=== PATIENT | male | born 1990 | race American Indian/Alaskan Native ===

== ENCOUNTER 2019-01-09 15:59 | Emergency (ER) | payer SELFPAY ==
[2019-01-09 16:27] VITALS: BP 112/70
== END 2019-01-09 17:45 | disposition left against medical advice (07) ==
LOC: ED 15:59
DX: R10.9 Unspecified abdominal pain (principal); Z53.21 Procedure and treatment not carried out due to patient leaving prior to being seen by health care provider

== ENCOUNTER 2019-01-10 09:44 | Emergency (ER) | payer OTHER ==
--- NOTE | 2019-01-10 12:38 | Emergency Department Report ---
ED General Adult HPI - General Chief complaint: Rectal Pain Stated complaint: LOWER REAR PAIN Time Seen by Provider: 01/10/19 12:11 Source: patient Mode of arrival: Ambulatory Limitations: No Limitations - History of Present Illness Initial comments: Patient presents to the emergency department with a chief complaint of rectal pain with bowel movements. Patient states his symptoms started 5 days ago after having a difficult time with a bowel movement. Patient complains of being.. Constipated and states he does not drink a lot of fluids or eat vegetables. Patient denies anal sex -: Sudden Radiation: non-radiation Severity scale (0 -10): 5 Quality: aching Consistency: intermittent Improves with: none Worsens with: other (Bowel movements) Associated Symptoms: denies other symptoms - Related Data Previous Rx's Medication Instructions Recorded Last Taken Type Hydrocodone Bit/Acetaminophen 1 each PO Q6H PRN #20 tablet 07/20/13 Unknown Rx [Lortab 10-500 mg] Ibuprofen [Motrin] 800 mg PO TID PRN #30 tablet 07/20/13 Unknown Rx Hydrocort/Pramoxine [Proctofoam-Hc] 10 gm MS BID #1 can 01/10/19 Unknown Rx Hydrocortisone [Anusol-Hc] 30 gm RC TID #1 cream..g. 01/10/19 Unknown Rx Sennosides Tab [Senokot] 8.6 mg PO BID #20 tablet 01/10/19 Unknown Rx Allergies Allergy/AdvReac Type Severity Reaction Status Date / Time No Known Allergies Allergy Verified 01/09/19 16:01 ED Review of Systems ROS: Stated complaint: LOWER REAR PAIN Other details as noted in HPI Constitutional: denies: chills, fever Eyes: denies: eye pain, eye discharge, vision change ENT: denies: ear pain, throat pain Respiratory: denies: cough, shortness of breath, wheezing Cardiovascular: denies: chest pain, palpitations Endocrine: no symptoms reported Gastrointestinal: denies: abdominal pain, nausea, diarrhea Genitourinary: denies: urgency, dysuria Musculoskeletal: denies: back pain, joint swelling, arthralgia Skin: denies: rash, lesions Neurological: denies: headache, weakness, paresthesias Psychiatric: denies: anxiety, depression Hematological/Lymphatic: denies: easy bleeding, easy bruising ED Past Medical Hx - Past Medical History Hx Asthma: Yes - Surgical History Past Surgical History?: No - Social History Smoking Status: Current Some Day Smoker Substance Use Type: Alcohol - Medications Home Medications: Home Medications Medication Instructions Recorded Confirmed Last Taken Type Hydrocodone Bit/Acetaminophen 1 each PO Q6H PRN #20 tablet 07/20/13 Unknown Rx [Lortab 10-500 mg] Ibuprofen [Motrin] 800 mg PO TID PRN #30 tablet 07/20/13 Unknown Rx Hydrocort/Pramoxine [Proctofoam-Hc] 10 gm MS BID #1 can 01/10/19 Unknown Rx Hydrocortisone [Anusol-Hc] 30 gm RC TID #1 cream..g. 01/10/19 Unknown Rx Sennosides Tab [Senokot] 8.6 mg PO BID #20 tablet 01/10/19 Unknown Rx ED Physical Exam - General Limitations: No Limitations General appearance: alert, in no apparent distress - Head Head exam: Present: atraumatic, normocephalic - Eye Eye exam: Present: normal appearance - ENT ENT exam: Present: mucous membranes moist - Neck Neck exam: Present: normal inspection - Respiratory Respiratory exam: Present: normal lung sounds bilaterally. Absent: respiratory distress - Cardiovascular Cardiovascular Exam: Present: regular rate, normal rhythm. Absent: systolic murmur, diastolic murmur, rubs, gallop - GI/Abdominal GI/Abdominal exam: Present: soft, normal bowel sounds. Absent: distended, tenderness - Rectal Rectal exam: Present: deferred, hemorrhoids, tenderness, other (chaperoned by Nurse Sukumar Hernandez) - Extremities Exam Extremities exam: Present: normal inspection - Back Exam Back exam: Present: normal inspection - Neurological Exam Neurological exam: Present: alert, oriented X3 - Psychiatric Psychiatric exam: Present: normal affect, normal mood - Skin Skin exam: Present: warm, dry, intact, normal color. Absent: rash ED Course Vital Signs 01/10/19 01/10/19 10:10 12:00 Temperature 97.9 F Pulse Rate 55 L Respiratory 19 16 Rate Blood Pressure 114/79 [Left] O2 Sat by Pulse 100 Oximetry ED Medical Decision Making - Medical Decision Making discussed plan of care with patient Critical care attestation.: If time is entered above; I have spent that time in minutes in the direct care of this critically ill patient, excluding procedure time. ED Disposition Clinical Impression: Hemorrhoid, Anal fissure Disposition: DC-01 TO HOME OR SELFCARE Is pt being admited?: No Does the pt Need Aspirin: No Condition: Stable Instructions: Anal Fissure (ED), Hemorrhoids (ED), Sitz Bath (GEN) Additional Instructions: return if worse Prescriptions: Hydrocortisone [Anusol-Hc] 30 gm RC TID #1 cream..g. Hydrocort/Pramoxine [Proctofoam-Hc] 10 gm MS BID #1 can Sennosides Tab [Senokot] 8.6 mg PO BID #20 tablet Referrals: ROSY [facility]ERS[facility] MD BEATRIZ [Primary Care Provider] - 3-5 Days [facility] [Provider Group] - 3-5 Days [facility] [Provider Group] - 3-5 Days Time of Disposition: 12:38
[2019-01-10 12:43] VITALS: BP 113/74
== END 2019-01-10 12:56 | disposition home or self-care (01) ==
LOC: ED 09:44
DX: K60.2 Anal fissure, unspecified (principal); K64.9 Unspecified hemorrhoids; J45.909 Unspecified asthma, uncomplicated; F17.200 Nicotine dependence, unspecified, uncomplicated; Z79.899 Other long term (current) drug therapy
CPT/HCPCS: 99282